=== PATIENT | male | born 1970 | race Caucasian/White ===

== ENCOUNTER → 2016-12-31 | Outpatient (REF) ==
--- NOTE | 2016-12-31 16:05 | REP ---
Partial lumbar spine series: Three views. History: Degenerative disc disease. No comparison views. Findings: There is some straightening of the normal lumbar lordosis. Lumbar vertebral body heights are preserved. Alignment is normal. There is no evidence of spondylolysis or spondylolisthesis. Psoas margins are symmetric. Sacrum and SI joints are intact. There is discogenic spurring anteriorly at L5-S1, L4-5, and L3-4. Mild disc space narrowing is seen at L3-4 and L4-5. Other disc spaces are maintained. Impression: Mild degenerative disc changes L3-4, L4-5 and L5-S1. Straightening. Otherwise negative. Signed by Ortega Edge MD 12/31/2016 04:20 P
--- NOTE | 2016-12-31 16:06 | REP ---
Right knee series: Five views. History: Degenerative disc disease. Findings: Five views of the right knee demonstrate mild patellofemoral spur formation and some mild medial and lateral compartment spurring as well. Early chondrocalcinosis is seen laterally. No erosive change or joint effusion is seen. Impression: Early three compartment osteoarthritis. Signed by Ortega Edge MD 12/31/2016 04:20 P
== END ==
LOC: M SMT 12:01
PROVIDERS: ATTEND Internal Medicine
DX: Z02.71 Encounter for disability determination (principal)